=== PATIENT | female | born 1980 | race Two or more races ===

== ENCOUNTER → 2024-02-01 | Outpatient (CLI) | payer OTHER, SELFPAY ==
--- NOTE | 2024-02-01 09:00 | XR_ITS ---
Examination: Pelvic ultrasound, transabdominal, complete Technique: Transabdominal ultrasound of the pelvis performed using grayscale imaging Date and time of exam: February 01, 2024 [id number] hours INDICATIONS: Left-sided pelvic pain beginning 6 months ago FINDINGS: Uterus 9.2 x 4.2 x 6.7 cm bicornuate Right and left endometrial stripe 7 mm No uterine mass or intrauterine gestation Right ovary 4.0 x 2.8 x 2.7 cm arterial flow 21 x 20 mm cyst Left ovary 3.0 x 1.7 cm arterial flow IMPRESSION: Bicornuate uterus with no uterine mass Right ovarian simple cyst 21 x 20 x 20 mm
== END | disposition home or self-care (01) ==
PROVIDERS: PCP Internal Medicine; Referring Provider Internal Medicine; Visit Provider Internal Medicine
DX: Q51.3 Bicornate uterus (principal); N83.291 Other ovarian cyst, right side
CPT/HCPCS: 76856